=== PATIENT | male | born 1940 | race Caucasian/White ===

== ENCOUNTER → 2017-01-20 | Outpatient (CLI) | payer MEDICARE ==
[~2017-01-20] VITALS: Ht 177.8 cm; Wt 94.3 kg
[~2017-01-20] MED LIST: /PRAV20TA PO; /TAMS4CA PO; A REDS PO; ASPI81TA85 PO; AUGM875T27 PO; CALCCHW19 PO; CALCIUM OR; CEPH500C PO; CLOT1CRE EX; LEVO500T PO; LIDO2JELLY EXT; LIDOCAINE 2% INJ 100 MG/5 ML SDV (FOR ANES.) As Ordered ONE; LIDOCAINE JELLY TOP; METO100T PO; METOPROLOL XL OR; METOPROLOL XL PO; NATU400T OR; NS 1,000 ML IV SCH; OXYC-208 OR; OXYCO5TA PO; PRAD150C PO; PRAV20TA2 PO; PRAV40TA2 PO; PRIL20CA PO; PRIL20CA9 PO; PROPOFOL 200 MG/20 ML VIAL As Ordered ONE; TYLE325T5 PO; VITA-112 PO; VITA-130 OR; VITA400C2 PO; VITA500C24 PO; VITA8000 PO; VITAMIN D OR; XARE15TA PO; XARE20TA PO; ZINC50TA PO; ZINC50TA22 OR; [UNRECOGNIZED DRUG - OTHER] OR; [UNRECOGNIZED DRUG - OTHER] OR; copper OR; toprol OR
--- NOTE | 2017-01-20 14:46 | ROOR ---
Patient Name: Otto Moralez Procedure Date: 01/20/2017 2:27 PM Date of : 1940 Age: 76 Room: [facility] Gender: Male Note Status: Finalized Procedure: Colonoscopy to Cecum thru Ostomy + Biopsy Polypectomy Indications: High risk colon cancer surveillance: Personal history of colon cancer, Last colonoscopy: 2012 Providers: Hai Vanegas MD Referring MD: EVENS KIRAN JR, MD Requesting Provider: Medicines: Monitored Anesthesia Care Complications: No immediate complications. Procedure: Pre-Anesthesia Assessment: - The heart rate, respiratory rate, oxygen saturations, blood pressure, adequacy of pulmonary ventilation, and response to care were monitored throughout the procedure. The Colonoscope was introduced through the sigmoid colostomy and advanced to the cecum, identified by appendiceal orifice and ileocecal valve. The colonoscopy was performed without difficulty. The patient tolerated the procedure well. The quality of the bowel preparation was good. Findings: Multiple small and large-mouthed diverticula were found in the sigmoid colon. Two sessile polyps were found in the mid ascending colon. The polyps were small in size. These polyps were removed with a cold biopsy forceps. Resection and retrieval were complete. The exam was otherwise without abnormality. Impression: - Diverticulosis in the sigmoid colon. - Two small polyps in the mid ascending colon, removed with a cold biopsy forceps. Resected and retrieved. - The examination was otherwise normal. - The exam was otherwise normal to the cecum. Recommendation: - Discharge patient to home. - High fiber diet. - Continue present medications. - Await pathology results. - Telephone GI clinic for pathology results in 1 week. - Repeat colonoscopy in 2 years for surveillance based on pathology results. - Return to referring physician. - The findings and recommendations were discussed with the patient's family. Hai Vanegas MD Hai Vanegas MD 01/20/2017 2:45:33 PM This report has been signed electronically. Number of Addenda: 0 Note Initiated On: 01/20/2017 2:27 PM Estimated Blood Loss: Estimated blood loss: none.
[2017-01-20 15:10] VITALS: BP 164/89
== END | disposition home or self-care (01) ==
LOC: M OPP 13:28
PROVIDERS: ATTEND Internal Medicine Gastroenterology
DX: Z12.11 Encounter for screening for malignant neoplasm of colon (principal); D12.2 Benign neoplasm of ascending colon; K57.30 Diverticulosis of large intestine without perforation or abscess without bleeding; Z85.038 Personal history of other malignant neoplasm of large intestine; Z08 Encounter for follow-up examination after completed treatment for malignant neoplasm; I48.91 Unspecified atrial fibrillation; I10 Essential (primary) hypertension; E78.5 Hyperlipidemia, unspecified; Z95.828 Presence of other vascular implants and grafts; M19.90 Unspecified osteoarthritis, unspecified site; M54.9 Dorsalgia, unspecified; G47.30 Sleep apnea, unspecified; Z85.528 Personal history of other malignant neoplasm of kidney; Z93.3 Colostomy status; R12 Heartburn; Z87.891 Personal history of nicotine dependence; F17.221 Nicotine dependence, chewing tobacco, in remission; Z92.21 Personal history of antineoplastic chemotherapy; Z79.01 Long term (current) use of anticoagulants; Z79.899 Other long term (current) drug therapy

== ENCOUNTER → 2017-02-06 | Outpatient (CLI) | payer MEDICARE ==
[~2017-02-06] MED LIST changes: -LIDOCAINE 2% INJ 100 MG/5 ML SDV (FOR ANES.) As Ordered ONE; -NS 1,000 ML IV SCH; -PROPOFOL 200 MG/20 ML VIAL As Ordered ONE
--- NOTE | 2017-02-06 13:11 | REP ---
CT of the chest without IV contrast: Comparisons are 08/07/2016 and 04/16/2016. The the patient has multiple lung nodules as follows: Page 51, lingula, pericardial, 12 mm (and 9 mm on both prior studies). Page 54, left lower lobe, 8 mm (8 mm and 03/22/2016, 7 mm 04/16/2016). Page 58, left lower lobe, 3 mm (3 mm, 08/07/2016, 2 mm 04/16/2016). No new lung nodules are identified. Occasional small calcific pleural plaques are again noted, unchanged. There are no acute infiltrates or effusions. There is no mediastinal or axillary lymphadenopathy. In the absence of IV contrast the study is insensitive for hilar lymphadenopathy. The unenhanced thoracic aorta is unremarkable. Cardiac size is normal. Coronary artery vascular atheroma is again noted. Upper abdomen: There is no adrenal mass. The visualized portions of the unenhanced liver, pancreas and spleen are unremarkable. There are surgical clips in the gallbladder fossa. Impression: There are three left lung nodules. The 12 mm nodule has increased size from both prior studies. The other two nodules demonstrate no significant size increase. Occasional small calcific pleural plaques are again noted. Signed by Enoch Boland MD 02/06/2017 01:03 P
== END ==
LOC: M RAD 11:04
PROVIDERS: ATTEND Internal Medicine
DX: C20 Malignant neoplasm of rectum (principal); R91.8 Other nonspecific abnormal finding of lung field

== ENCOUNTER → 2017-08-19 | Outpatient (CLI) | payer MEDICARE ==
[~2017-08-19] MED LIST changes: +GASTROGRAFIN SOLUTION 30ML (Q9963) As Ordered ONE; +ISOVUE-370 76% 100ML VIAL (Q9967) As Ordered ONE; -METO100T PO; +METO100T5 PO
--- NOTE | 2017-08-19 15:24 | REP ---
CT CHEST WITHOUT IV CONTRAST: CT chest is performed without IV contrast with sagittal and coronal reconstruction images. Comparison 02/06/2017. The previously noted left upper lobe nodule medially along the left heart border demonstrates irregular margins and measures 14 cm in diameter, mildly increased in size since prior study. The other nodule in the left lower lobe just inferior to that has also increased in size measuring 1.6 cm in diameter. There are tiny air lucencies within the nodule suggesting possible necrosis. The 2 to 3 mm nodular opacity just inferior to that in the left lower lobe is stable and of doubtful significance. No new nodules are seen. There are scattered calcified pleural plaques bilaterally. Mild interstitial fibrotic changes are seen bilaterally. Heart is normal in size. There is no pleural or pericardial effusion. No significant adenopathy is seen in the mediastinal or hilar regions, nor in the axillary regions. There are mild atherosclerotic calcifications of the thoracic aorta without aneurysm. There are degenerative changes of the spine. There are compression deformities of a few lower thoracic vertebral bodies which are stable. IMPRESSION: Two dominant nodules in the left lung, one in the left upper lobe and the other in the left lower lobe, demonstrating irregular borders and increase in size when compared to the prior study of 02/06/2017. No other new findings. Signed by Enoch Pak MD 08/19/2017 08:01 P
--- NOTE | 2017-08-19 15:43 | REP ---
CT ABDOMEN AND PELVIS WITH ORAL CONTRAST, WITHOUT IV CONTRAST: CT abdomen and pelvis is performed without IV contrast. Oral contrast was administered. Sagittal and coronal reconstruction images are performed. Comparison is made with prior CT abdomen and pelvis 09/16/2014. The liver is grossly unremarkable. The patient has had a prior cholecystectomy. I do not see significant biliary dilatation. The spleen, adrenals and pancreas are grossly unremarkable. The patient has had a prior right nephrectomy. Left kidney demonstrates a cyst in the upper pole without evidence of hydronephrosis or nephrolithiasis. Moderate atherosclerotic calcifications are seen of the abdominal aorta without aneurysm. IVC filter is present. No adenopathy is seen. No free air or free fluid is seen. A colostomy is seen in the left lower quadrant with diffuse colonic diverticulosis. The appendix appears normal. Remnant of the bladder inferiorly in the pelvis appears unchanged. No new pelvic mass is seen. There are degenerative changes of the spine. IMPRESSION: Postsurgical changes as discussed in detail above. Colonic diverticulosis. No acute abnormalities. No free air or free fluid. No adenopathy or evidence of mass. Left renal cyst. Signed by Enoch Pak MD 08/19/2017 08:02 P
== END ==
LOC: M RAD 09:08
PROVIDERS: ATTEND Internal Medicine
DX: C20 Malignant neoplasm of rectum (principal); I70.0 Atherosclerosis of aorta; R91.8 Other nonspecific abnormal finding of lung field
CPT/HCPCS: 71250; 74176; Q9963

== ENCOUNTER 2018-04-17 05:33 | Inpatient (IN) | payer MEDICARE ==
[2018-04-17] MEDS ORDERED: LIDOCAINE 1% MDV 20ML VIAL SQ (05:45)
[2018-04-17] MEDS: LR 1,000 ML IV ×2 (06:28→17:09)
[2018-04-17] MEDS ORDERED: fentaNYL 100 MCG/2 ML INJECTION (J3010) As Ordered (07:10)
[2018-04-17] MEDS ORDERED: PROPOFOL 200 MG/20 ML VIAL As Ordered (07:10)
[2018-04-17] MEDS ORDERED: METOCLOPRAMIDE INJ 10MG/2ML VIAL (J2765) As Ordered (07:10)
[2018-04-17] MEDS ORDERED: ROCURONIUM BROMIDE 50 MG/5 ML VIAL As Ordered ×2 (07:10→09:18)
[2018-04-17] MEDS ORDERED: LIDOCAINE 2% INJ 100 MG/5 ML SDV (FOR ANES.) As Ordered (07:10)
[2018-04-17] MEDS ORDERED: ONDANSETRON 4MG/2ML VIAL (J2405) As Ordered (07:10)
[2018-04-17] MEDS: LIDOCAINE 1% SDV INJ 30 ML VIAL As Ordered (08:13)
[2018-04-17] MEDS: BUPIVACAINE HCL 0.25% 30 ML VIAL As Ordered (08:13)
[2018-04-17] MEDS ORDERED: fentaNYL 250 MCG/5 ML INJECTION (J3010) As Ordered (08:16)
[2018-04-17] MEDS: ZOSYN 3.375 GM VIAL (J2543) As Ordered (10:30)
[2018-04-17] MEDS: BACITRACIN PWD 50,000 UNITS VIAL As Ordered (10:58)
[2018-04-17] MEDS ORDERED: LABETALOL HCL 100 MG/20 ML VIAL As Ordered (12:40)
[2018-04-17] MEDS ORDERED: ePHEDrine SULFATE 25 MG/5 ML(5MG/ML) SYRINGE As Ordered (12:40)
[2018-04-17] MEDS ORDERED: HYDROmorphone HCL 2 MG/ML 1ML VIAL (J1170) As Ordered (14:38)
[2018-04-17] MEDS ORDERED: ONDANSETRON 4MG/2ML VIAL (J2405) IV ×2 (15:15→16:00)
[2018-04-17] MEDS ORDERED: MORPHINE 4 MG/ML 1ML VIAL/SYRINGE (J2270) IV (15:15)
[2018-04-17] MEDS ORDERED: GLYCOPYRROLATE INJ 0.2 MG/ML 2 ML VIAL As Ordered (15:17)
[2018-04-17] MEDS ORDERED: NEOSTIGMINE 10 MG/10 ML VIAL (J2710) As Ordered (15:17)
[2018-04-17] MEDS ORDERED: HYDROMORPHONE HCL 0.5 MG/ 0.5 ML SYRINGE (J1170 PER 1) IV (16:00)
[2018-04-17] MEDS ORDERED: PERCOCET 5MG/325MG TAB PO (16:00)
[2018-04-17] MEDS ORDERED: fentaNYL 100 MCG/2 ML INJECTION (J3010) IV (16:00)
[2018-04-17] MEDS: NORCO, ANEXSIA 5/325MG TABLET (HYDROcodone/ACETAMINOPHEN) PO (17:06)
[2018-04-17] MEDS: OMEPRAZOLE 20 MG CAP PO (17:34)
[2018-04-17] MEDS: PRAVASTATIN 20 MG TAB PO (17:34)
[2018-04-17] MEDS: VITAMIN D 1,000 INTERNATIONAL UNITS TABLET PO (17:34)
[2018-04-17] MEDS: KETOROLAC 30 MG/ML VIAL (J1885) IV (22:17)
[2018-04-17] MEDS: ALVIMOPAN 12 MG CAPSULE (ENTEREG) PO (23:06)
[2018-04-17] MEDS: SENOKOT S TAB PO (23:06)
[2018-04-18 06:14] LABS: BASO % 0.2 % (0.0-1.0); HEMATOCRIT 40.7 % (42.0-52.0); IMMATURE GRANULOCYTE % 0.3 % (0-3.0); LYMPH # 0.6 10^3/uL (1.5-4.5); LYMPH % 5.1 % (24.0-44.0); MEAN CORPUSCULAR HEMOGLOBIN 32.4 pg (27.0-33.0); MEAN CORPUSCULAR HGB CONC 34.4 g/dl (32.0-36.5); MEAN CORPUSCULAR VOLUME 94.2 fl (80.0-96.0); MONO # 0.9 10^3/uL (0.0-0.8); MONO % 7.5 % (0.0-5.0); NEUTROPHILS # 10.5 10^3/uL (1.8-7.7); NEUTROPHILS % 86.9 % (36.0-66.0); PLATELET COUNT, AUTOMATED 166 10^3/uL (150-450); RED BLOOD COUNT 4.32 10^6/uL (4.30-6.10); RED CELL DISTRIBUTION WIDTH 13.5 % (11.5-14.5); WHITE BLOOD COUNT 12.1 10^3/uL (4.0-10.0)
[2018-04-18 06:30] LABS: ANION GAP 5 MEQ/L (8-16); BLOOD UREA NITROGEN 21 MG/DL (7-18); CALCIUM LEVEL 8.6 MG/DL (8.8-10.2); CARBON DIOXIDE LEVEL 26 MEQ/L (21-32); CHLORIDE LEVEL 108 MEQ/L (98-107); CREATININE FOR GFR 1.62 MG/DL (0.70-1.30); GLOMERULAR FILTRATION RATE 44.2 (>42); GLUCOSE, FASTING 137 MG/DL (70-100); POTASSIUM SERUM 4.3 MEQ/L (3.5-5.1); SODIUM LEVEL 139 MEQ/L (136-145)
[2018-04-18] MEDS: KETOROLAC 30 MG/ML VIAL (J1885) IV ×2 (10:25→17:02)
[2018-04-18] MEDS: ENOXAPARIN 40 MG/0.4 ML SYRINGE (J1650) SC (10:25)
[2018-04-18] MEDS: ACETAMINOPHEN TAB 650MG DOSE (2X325MG) PO (10:25)
[2018-04-18] MEDS: METOPROLOL SUCC (TopROL XL) 100MG *XL* TAB PO (10:26)
[2018-04-18] MEDS: SENOKOT S TAB PO ×2 (10:26→20:23)
[2018-04-18] MEDS: VITAMIN D 1,000 INTERNATIONAL UNITS TABLET PO (10:26)
[2018-04-18] MEDS: OMEPRAZOLE 20 MG CAP PO (10:26)
[2018-04-18] MEDS: PRAVASTATIN 20 MG TAB PO (10:26)
[2018-04-18] MEDS: ALVIMOPAN 12 MG CAPSULE (ENTEREG) PO ×2 (11:52→20:23)
[2018-04-19 06:26] LABS: BASO % 0.2 % (0.0-1.0); EOS % 0.1 % (0.0-3.0); HEMATOCRIT 41.9 % (42.0-52.0); HEMOGLOBIN 14.5 g/dl (13.5-17.5); IMMATURE GRANULOCYTE % 0.5 % (0-3.0); LYMPH # 0.8 10^3/uL (1.5-4.5); LYMPH % 5.7 % (24.0-44.0); MEAN CORPUSCULAR HEMOGLOBIN 32.2 pg (27.0-33.0); MEAN CORPUSCULAR HGB CONC 34.6 g/dl (32.0-36.5); MEAN CORPUSCULAR VOLUME 93.1 fl (80.0-96.0); MONO # 0.9 10^3/uL (0.0-0.8); MONO % 6.5 % (0.0-5.0); NEUTROPHILS # 11.5 10^3/uL (1.8-7.7); PLATELET COUNT, AUTOMATED 162 10^3/uL (150-450); RED CELL DISTRIBUTION WIDTH 13.6 % (11.5-14.5); WHITE BLOOD COUNT 13.2 10^3/uL (4.0-10.0)
[2018-04-19 06:53] LABS: ANION GAP 8 MEQ/L (8-16); BLOOD UREA NITROGEN 18 MG/DL (7-18); CALCIUM LEVEL 9.1 MG/DL (8.8-10.2); CARBON DIOXIDE LEVEL 24 MEQ/L (21-32); CHLORIDE LEVEL 109 MEQ/L (98-107); CREATININE FOR GFR 1.36 MG/DL (0.70-1.30); GLOMERULAR FILTRATION RATE 54.1 (>42); GLUCOSE, FASTING 114 MG/DL (70-100); POTASSIUM SERUM 4.2 MEQ/L (3.5-5.1); SODIUM LEVEL 141 MEQ/L (136-145)
[2018-04-19] MEDS: VITAMIN D 1,000 INTERNATIONAL UNITS TABLET PO (10:09)
[2018-04-19] MEDS: SENOKOT S TAB PO ×2 (10:09→21:42)
[2018-04-19] MEDS: OMEPRAZOLE 20 MG CAP PO (10:09)
[2018-04-19] MEDS: ENOXAPARIN 40 MG/0.4 ML SYRINGE (J1650) SC (10:09)
[2018-04-19] MEDS: PRAVASTATIN 20 MG TAB PO (10:09)
[2018-04-19] MEDS: ALVIMOPAN 12 MG CAPSULE (ENTEREG) PO ×2 (10:09→21:42)
[2018-04-19] MEDS: METOPROLOL SUCC (TopROL XL) 100MG *XL* TAB PO (10:10)
[2018-04-19] MEDS: KETOROLAC 30 MG/ML VIAL (J1885) IV (10:54)
[2018-04-20 06:54] LABS: BASO % 0.3 % (0.0-1.0); EOS # 0.2 10^3/uL (0.0-0.50); EOS % 1.7 % (0.0-3.0); HEMATOCRIT 40.7 % (42.0-52.0); HEMOGLOBIN 13.6 g/dl (13.5-17.5); IMMATURE GRANULOCYTE % 0.4 % (0-3.0); LYMPH # 0.9 10^3/uL (1.5-4.5); LYMPH % 8.1 % (24.0-44.0); MEAN CORPUSCULAR HEMOGLOBIN 31.6 pg (27.0-33.0); MEAN CORPUSCULAR HGB CONC 33.4 g/dl (32.0-36.5); MEAN CORPUSCULAR VOLUME 94.7 fl (80.0-96.0); MONO # 0.8 10^3/uL (0.0-0.8); MONO % 7.3 % (0.0-5.0); NEUTROPHILS # 8.6 10^3/uL (1.8-7.7); NEUTROPHILS % 82.2 % (36.0-66.0); PLATELET COUNT, AUTOMATED 161 10^3/uL (150-450); WHITE BLOOD COUNT 10.5 10^3/uL (4.0-10.0)
[2018-04-20 07:28] LABS: ANION GAP 7 MEQ/L (8-16); BLOOD UREA NITROGEN 20 MG/DL (7-18); CALCIUM LEVEL 9.3 MG/DL (8.8-10.2); CARBON DIOXIDE LEVEL 26 MEQ/L (21-32); CHLORIDE LEVEL 108 MEQ/L (98-107); CREATININE FOR GFR 1.24 MG/DL (0.70-1.30); GLOMERULAR FILTRATION RATE > 60.0 (>42); GLUCOSE, FASTING 97 MG/DL (70-100); POTASSIUM SERUM 3.8 MEQ/L (3.5-5.1); SODIUM LEVEL 141 MEQ/L (136-145)
[2018-04-20] MEDS: SENOKOT S TAB PO ×3 (09:00→20:28)
[2018-04-20] MEDS: OMEPRAZOLE 20 MG CAP PO (10:51)
[2018-04-20] MEDS: METOPROLOL SUCC (TopROL XL) 100MG *XL* TAB PO (10:51)
[2018-04-20] MEDS: PRAVASTATIN 20 MG TAB PO (10:51)
[2018-04-20] MEDS: VITAMIN D 1,000 INTERNATIONAL UNITS TABLET PO (10:52)
[2018-04-20] MEDS: ENOXAPARIN 40 MG/0.4 ML SYRINGE (J1650) SC (10:52)
[2018-04-20] MEDS ORDERED: ADENOSINE 6MG/2ML INJECTION (J0153) As Ordered ×2 (12:44→12:48)
[2018-04-20] MEDS: ADENOSINE 6MG/2ML INJECTION (J0153) IV (12:50)
[2018-04-20 14:45] LABS: CK-MB VALUE MASS < 1.0 NG/ML (<3.6); CPK CREATINE PHOSPHOKINASE 85 U/L (39-308); MB/CK RELATIVE INDEX 1.17 (< OR =4)
[2018-04-20 16:30] LABS: MAGNESIUM LEVEL 2.3 MG/DL (1.8-2.4); PHOSPHORUS LEVEL 1.7 MG/DL (2.5-4.9); THYROID STIMULATING HORMONE 0.538 uIU/ML (0.358-3.740)
[2018-04-20] MEDS: RIVAROXABAN 20 MG TAB (XARELTO) PO (17:19)
[2018-04-20] MEDS: AMIODARONE HCL 150 MG in APPROPRIATE DILUENT 1 EA IV (23:40)
[2018-04-21 05:35] LABS: TROPONIN I 0.03 NG/ML (< 0.10)
[2018-04-21] MEDS: AMIODARONE 200 MG TAB (PACERONE) PO (08:09)
[2018-04-21] MEDS: VITAMIN D 1,000 INTERNATIONAL UNITS TABLET PO (08:09)
[2018-04-21] MEDS: PRAVASTATIN 20 MG TAB PO (08:09)
[2018-04-21] MEDS: OMEPRAZOLE 20 MG CAP PO (08:10)
[2018-04-21] MEDS: METOPROLOL SUCC (TopROL XL) 100MG *XL* TAB PO (08:10)
[2018-04-21] MEDS: SENOKOT S TAB PO (08:10)
[2018-04-21] MEDS: AMIODARONE HCL 150 MG in APPROPRIATE DILUENT 1 EA IV ×2 (08:11→11:30)
[2018-04-21] MEDS: NORCO, ANEXSIA 5/325MG TABLET (HYDROcodone/ACETAMINOPHEN) PO (13:22)
== END 2018-04-21 17:15 | disposition home health service (06) | DRG 354 ==
LOC: M SDC 05:33 → M MSPAV 16:24 → M ICU 04-20 12:41 → M SDC 15:06 → M MSPAV 15:07
PROC: 0WQF4ZZ Repair Abdominal Wall, Percutaneous Endoscopic Approach (ICD-10-PCS; principal; 2018-04-17 07:30)
PROC: 0WUF4JZ Supplement Abdominal Wall with Synthetic Substitute, Percutaneous Endoscopic Approach (ICD-10-PCS; 2018-04-17 07:30)
PROC: 0JQ83ZZ Repair Abdomen Subcutaneous Tissue and Fascia, Percutaneous Approach (ICD-10-PCS; 2018-04-17 07:30)
PROC: 8E0W4CZ Robotic Assisted Procedure of Trunk Region, Percutaneous Endoscopic Approach (ICD-10-PCS; 2018-04-17 07:30)
DX: K43.5 Parastomal hernia without obstruction or gangrene (principal); I47.1 Supraventricular tachycardia; K94.09 Other complications of colostomy; I48.91 Unspecified atrial fibrillation; Z79.01 Long term (current) use of anticoagulants; I10 Essential (primary) hypertension; Z85.048 Personal history of other malignant neoplasm of rectum, rectosigmoid junction, and anus; Z79.899 Other long term (current) drug therapy; E78.5 Hyperlipidemia, unspecified; K21.9 Gastro-esophageal reflux disease without esophagitis; J44.9 Chronic obstructive pulmonary disease, unspecified; G47.33 Obstructive sleep apnea (adult) (pediatric)

== ENCOUNTER 2018-05-06 16:21 | Emergency (ER) | payer MEDICARE ==
[2018-05-06 17:17] LABS: HEMATOCRIT 42.3 % (42.0-52.0); HEMOGLOBIN 14.4 g/dl (13.5-17.5); MEAN CORPUSCULAR HEMOGLOBIN 32.6 pg (27.0-33.0); MEAN CORPUSCULAR VOLUME 95.7 fl (80.0-96.0); PLATELET COUNT, AUTOMATED 475 10^3/uL (150-450); RED BLOOD COUNT 4.42 10^6/uL (4.30-6.10); RED CELL DISTRIBUTION WIDTH 13.7 % (11.5-14.5); WHITE BLOOD COUNT 20.8 10^3/uL (4.0-10.0)
[2018-05-06] MEDS: AMIODARONE 200 MG TAB (PACERONE) PO (17:25)
[2018-05-06] MEDS: METOPROLOL TART 50 MG TAB PO (17:25)
[2018-05-06 17:35] LABS: ANION GAP 11 MEQ/L (8-16); BLOOD UREA NITROGEN 25 MG/DL (7-18); CALCIUM LEVEL 8.8 MG/DL (8.8-10.2); CARBON DIOXIDE LEVEL 26 MEQ/L (21-32); CHLORIDE LEVEL 102 MEQ/L (98-107); CREATININE FOR GFR 1.48 MG/DL (0.70-1.30); GLOMERULAR FILTRATION RATE 49.1 (>42); GLUCOSE, FASTING 118 MG/DL (70-100); POTASSIUM SERUM 4.4 MEQ/L (3.5-5.1); SODIUM LEVEL 139 MEQ/L (136-145)
[2018-05-06] MEDS: METOPROLOL TART 25 MG TABLET PO (19:19)
[2018-05-06 19:34] LABS: CK-MB VALUE MASS 1.3 NG/ML (<3.6); CPK CREATINE PHOSPHOKINASE 32 U/L (39-308); MB/CK RELATIVE INDEX 4.06 (< OR =4); TROPONIN I < 0.02 NG/ML (< 0.10)
== END 2018-05-06 21:39 | disposition home or self-care (01) ==
LOC: M ED 16:21
DX: I48.91 Unspecified atrial fibrillation (principal); I10 Essential (primary) hypertension; Z85.048 Personal history of other malignant neoplasm of rectum, rectosigmoid junction, and anus; Z79.899 Other long term (current) drug therapy; Z79.01 Long term (current) use of anticoagulants
CPT/HCPCS: 99285

== ENCOUNTER 2018-05-08 22:00 | Inpatient (IN) | payer MEDICARE ==
[2018-05-09] MEDS: NS 500 ML IV (00:58)
[2018-05-09 01:03] LABS: BASO % 0.2 % (0.0-1.0); EOS # 0.1 10^3/uL (0.0-0.50); EOS % 0.4 % (0.0-3.0); HEMATOCRIT 38.3 % (42.0-52.0); HEMOGLOBIN 12.8 g/dl (13.5-17.5); IMMATURE GRANULOCYTE % 1.6 % (0-3.0); LYMPH # 1.4 10^3/uL (1.5-4.5); LYMPH % 6.8 % (24.0-44.0); MEAN CORPUSCULAR HEMOGLOBIN 31.7 pg (27.0-33.0); MEAN CORPUSCULAR HGB CONC 33.4 g/dl (32.0-36.5); MEAN CORPUSCULAR VOLUME 94.8 fl (80.0-96.0); MONO # 1.3 10^3/uL (0.0-0.8); MONO % 6.7 % (0.0-5.0); NEUTROPHILS % 84.3 % (36.0-66.0); PLATELET COUNT, AUTOMATED 429 10^3/uL (150-450); RED BLOOD COUNT 4.04 10^6/uL (4.30-6.10); RED CELL DISTRIBUTION WIDTH 13.5 % (11.5-14.5); WHITE BLOOD COUNT 20.1 10^3/uL (4.0-10.0)
[2018-05-09 01:27] LABS: ALBUMIN 2.2 GM/DL (3.2-5.2); ALBUMIN/GLOBULIN RATIO 0.52 (1.00-1.93); ALKALINE PHOSPHATASE 267 U/L (45-117); ALT/SGPT 52 U/L (12-78); ANION GAP 10 MEQ/L (8-16); AST/SGOT 37 U/L (7-37); BILIRUBIN,DIRECT 0.3 MG/DL (0.0-0.2); BILIRUBIN,TOTAL 0.5 MG/DL (0.2-1.0); BLOOD UREA NITROGEN 26 MG/DL (7-18); CALCIUM LEVEL 8.6 MG/DL (8.8-10.2); CARBON DIOXIDE LEVEL 26 MEQ/L (21-32); CHLORIDE LEVEL 102 MEQ/L (98-107); CREATININE FOR GFR 1.47 MG/DL (0.70-1.30); GLOMERULAR FILTRATION RATE 49.5 (>42); GLUCOSE, FASTING 112 MG/DL (70-100); LIPASE 197 U/L (73-393); POTASSIUM SERUM 3.7 MEQ/L (3.5-5.1); SODIUM LEVEL 138 MEQ/L (136-145); TOTAL PROTEIN 6.4 GM/DL (6.4-8.2)
[2018-05-09] MEDS ORDERED: BISACODYL 5 MG TAB PO (01:45)
[2018-05-09] MEDS ORDERED: ACETAMINOPHEN TAB 650MG DOSE (2X325MG) PO (01:45)
[2018-05-09] MEDS ORDERED: NORCO, ANEXSIA 5/325MG TABLET (HYDROcodone/ACETAMINOPHEN) PO (01:45)
[2018-05-09] MEDS ORDERED: ONDANSETRON 4 MG TAB (S0181) PO (01:45)
[2018-05-09 01:48] LABS: INR 2.09; PROTHROMBIN TIME 23.9 SECONDS (12.1-14.4)
[2018-05-09 02:05] LABS: LACTIC ACID SEPSIS PROTOCOL 2.5 MMOL/L (0.4-2.0)
[2018-05-09 05:28] LABS: BASO % 0.3 % (0.0-1.0); EOS # 0.1 10^3/uL (0.0-0.50); EOS % 0.7 % (0.0-3.0); HEMATOCRIT 35.3 % (42.0-52.0); IMMATURE GRANULOCYTE % 1.3 % (0-3.0); LYMPH # 1.1 10^3/uL (1.5-4.5); LYMPH % 6.9 % (24.0-44.0); MEAN CORPUSCULAR HEMOGLOBIN 31.6 pg (27.0-33.0); MEAN CORPUSCULAR VOLUME 92.9 fl (80.0-96.0); MONO % 6.4 % (0.0-5.0); NEUTROPHILS # 13.4 10^3/uL (1.8-7.7); NEUTROPHILS % 84.4 % (36.0-66.0); PLATELET COUNT, AUTOMATED 369 10^3/uL (150-450); RED CELL DISTRIBUTION WIDTH 13.5 % (11.5-14.5); WHITE BLOOD COUNT 15.9 10^3/uL (4.0-10.0)
[2018-05-09 05:40] LABS: ANION GAP 8 MEQ/L (8-16); BLOOD UREA NITROGEN 23 MG/DL (7-18); CALCIUM LEVEL 8.1 MG/DL (8.8-10.2); CARBON DIOXIDE LEVEL 25 MEQ/L (21-32); CHLORIDE LEVEL 106 MEQ/L (98-107); CREATININE FOR GFR 1.23 MG/DL (0.70-1.30); GLOMERULAR FILTRATION RATE > 60.0 (>42); GLUCOSE, FASTING 109 MG/DL (70-100); POTASSIUM SERUM 3.6 MEQ/L (3.5-5.1); SODIUM LEVEL 139 MEQ/L (136-145)
[2018-05-09] MEDS ORDERED: CALCIUM/VITAMIN D 500 MG TAB PO (09:00)
[2018-05-09] MEDS: AMIODARONE 200 MG TAB (PACERONE) PO ×2 (09:44→21:42)
[2018-05-09] MEDS: VITAMIN D 1,000 INTERNATIONAL UNITS TABLET PO (09:44)
[2018-05-09] MEDS: OMEPRAZOLE 20 MG CAP PO (09:44)
[2018-05-09] MEDS: PRAVASTATIN 20 MG TAB PO (09:44)
[2018-05-09] MEDS: METOPROLOL TART 25 MG TABLET PO ×2 (09:44→21:42)
[2018-05-09] MEDS: METAMUCIL (PSYLLIUM) PACKET PO (10:58)
[2018-05-09] MEDS: CALCIUM/VITAMIN D 500 MG TAB PO (10:58)
[2018-05-09 18:21] LABS: HEMATOCRIT 39.2 % (42.0-52.0); HEMOGLOBIN 13.3 g/dl (13.5-17.5); MEAN CORPUSCULAR HGB CONC 33.9 g/dl (32.0-36.5); MEAN CORPUSCULAR VOLUME 94.2 fl (80.0-96.0); PLATELET COUNT, AUTOMATED 462 10^3/uL (150-450); RED BLOOD COUNT 4.16 10^6/uL (4.30-6.10); RED CELL DISTRIBUTION WIDTH 13.7 % (11.5-14.5); WHITE BLOOD COUNT 14.3 10^3/uL (4.0-10.0)
[2018-05-10 06:10] LABS: BASO % 0.3 % (0.0-1.0); EOS # 0.2 10^3/uL (0.0-0.50); EOS % 1.6 % (0.0-3.0); HEMATOCRIT 37.9 % (42.0-52.0); HEMOGLOBIN 12.5 g/dl (13.5-17.5); IMMATURE GRANULOCYTE % 1.8 % (0-3.0); LYMPH # 1.2 10^3/uL (1.5-4.5); LYMPH % 8.7 % (24.0-44.0); MEAN CORPUSCULAR HEMOGLOBIN 31.5 pg (27.0-33.0); MEAN CORPUSCULAR VOLUME 95.5 fl (80.0-96.0); MONO # 0.8 10^3/uL (0.0-0.8); MONO % 6.3 % (0.0-5.0); NEUTROPHILS # 10.8 10^3/uL (1.8-7.7); NEUTROPHILS % 81.3 % (36.0-66.0); PLATELET COUNT, AUTOMATED 391 10^3/uL (150-450); RED BLOOD COUNT 3.97 10^6/uL (4.30-6.10); RED CELL DISTRIBUTION WIDTH 13.6 % (11.5-14.5); WHITE BLOOD COUNT 13.3 10^3/uL (4.0-10.0)
[2018-05-10 06:27] LABS: ANION GAP 6 MEQ/L (8-16); BLOOD UREA NITROGEN 21 MG/DL (7-18); CALCIUM LEVEL 8.3 MG/DL (8.8-10.2); CARBON DIOXIDE LEVEL 27 MEQ/L (21-32); CHLORIDE LEVEL 107 MEQ/L (98-107); CREATININE FOR GFR 1.21 MG/DL (0.70-1.30); GLOMERULAR FILTRATION RATE > 60.0 (>42); GLUCOSE, FASTING 90 MG/DL (70-100); POTASSIUM SERUM 3.6 MEQ/L (3.5-5.1); SODIUM LEVEL 140 MEQ/L (136-145)
[2018-05-10] MEDS: METAMUCIL (PSYLLIUM) PACKET PO (10:21)
[2018-05-10] MEDS: METOPROLOL TART 25 MG TABLET PO (10:22)
[2018-05-10] MEDS: OMEPRAZOLE 20 MG CAP PO (10:22)
[2018-05-10] MEDS: PRAVASTATIN 20 MG TAB PO (10:22)
[2018-05-10] MEDS: VITAMIN D 1,000 INTERNATIONAL UNITS TABLET PO (10:22)
[2018-05-10] MEDS: AMIODARONE 200 MG TAB (PACERONE) PO (10:23)
[2018-05-10] MEDS: CALCIUM/VITAMIN D 500 MG TAB PO (10:23)
== END 2018-05-10 13:40 | disposition home health service (06) | DRG 394 ==
LOC: M ED 22:00 → M ED INP 05-09 01:40 → M MSPAV 05-09 03:11
DX: K94.01 Colostomy hemorrhage (principal); K92.2 Gastrointestinal hemorrhage, unspecified; I48.0 Paroxysmal atrial fibrillation; I12.9 Hypertensive chronic kidney disease with stage 1 through stage 4 chronic kidney disease, or unspecified chronic kidney disease; E78.5 Hyperlipidemia, unspecified; G47.33 Obstructive sleep apnea (adult) (pediatric); Z85.038 Personal history of other malignant neoplasm of large intestine; Z85.048 Personal history of other malignant neoplasm of rectum, rectosigmoid junction, and anus; N18.9 Chronic kidney disease, unspecified; Z86.718 Personal history of other venous thrombosis and embolism; N28.1 Cyst of kidney, acquired; K57.30 Diverticulosis of large intestine without perforation or abscess without bleeding

== ENCOUNTER → 2018-08-17 | Outpatient (CLI) | payer MEDICARE ==
[~2018-08-17] MED LIST changes: -/PRAV20TA PO; -/TAMS4CA PO; -A REDS PO; -ASPI81TA85 PO; -AUGM875T27 PO; -CALCCHW19 PO; -CALCIUM OR; -CEPH500C PO; -CLOT1CRE EX; +GASTROGRAFIN SOLUTION 30ML (Q9963) As Ordered; -GASTROGRAFIN SOLUTION 30ML (Q9963) As Ordered ONE; +ISOVUE-370 76% 100ML VIAL (Q9967) As Ordered; -ISOVUE-370 76% 100ML VIAL (Q9967) As Ordered ONE; -LEVO500T PO; -LIDO2JELLY EXT; -LIDOCAINE JELLY TOP; -METO100T5 PO; -METOPROLOL XL OR; -METOPROLOL XL PO; -NATU400T OR; -OXYC-208 OR; -OXYCO5TA PO; -PRAD150C PO; -PRAV20TA2 PO; -PRAV40TA2 PO; -PRIL20CA PO; -PRIL20CA9 PO; -TYLE325T5 PO; -VITA-112 PO; -VITA-130 OR; -VITA400C2 PO; -VITA500C24 PO; -VITA8000 PO; -VITAMIN D OR; -XARE15TA PO; -XARE20TA PO; -ZINC50TA PO; -ZINC50TA22 OR; -[UNRECOGNIZED DRUG - OTHER] OR; -[UNRECOGNIZED DRUG - OTHER] OR; -copper OR; -toprol OR
== END ==
LOC: M RAD 11:17
DX: C20 Malignant neoplasm of rectum (principal)
CPT/HCPCS: Q9963

== ENCOUNTER → 2019-05-21 | Outpatient (CLI) | payer MEDICARE ==
[~2019-05-21] MED LIST changes: +A REDS PO; +AMIO200T PO; +AREDS 2 PO; +ASPI81TA85 PO; +AUGM875T27 PO; +CALC-333 PO; +CALCCHW19 PO; +CALCIUM OR; +CALCTAB41 PO; +CEPH500C PO; +CLOT1CRE EX; +FLOM0.4C39 PO; -GASTROGRAFIN SOLUTION 30ML (Q9963) As Ordered; +GASTROGRAFIN SOLUTION 30ML (Q9963) As Ordered ONE; -ISOVUE-370 76% 100ML VIAL (Q9967) As Ordered; +KONS100P6 PO; +LEVO500T PO; +LIDO2GEL26 EXT; +LIDOCAINE JELLY TOP; +METO100T5 PO; +METO1TAB33 PO; +METO25TA4 PO; +METO37.5 PO; +METOPROLOL XL OR; +METOPROLOL XL PO; +NATU400T OR; +NORC1TAB7 PO; +OXYC-208 OR; +OXYC-517 PO; +PACE200T PO; +PRAD150C PO; +PRAV1TAB39 PO; +PRAV20TA2 PO; +PRAV40TA2 PO; +PRIL20CA PO; +PRIL20CA9 PO; +TYLE325T5 PO; +VITA-112 PO; +VITA-130 OR; +VITA400C2 PO; +VITA500C24 PO; +VITA8000 PO; +VITAMIN D OR; +XARE15TA PO; +XARE20TA PO; +ZINC50TA PO; +ZINC50TA22 OR; +[UNRECOGNIZED DRUG - OTHER] OR; +[UNRECOGNIZED DRUG - OTHER] OR; +copper OR; +toprol OR
--- NOTE | 2019-05-21 14:51 | REP ---
CT of the chest without IV contrast: Comparison is 08/17/2018. The known lung nodule anteriorly in the left upper lobe today measures 15 mm. This measured 2.0 cm 08/17/2018. The the known left lower lobe lung nodule today measures 2.1 cm and again demonstrates nodular stranding toward the peripheral pleural pleural and toward the left hilus. Previously this nodule measured 2.1 cm and also demonstrated nodular stranding toward the pleura and toward the left hilus. There are no new nodules. There are no infiltrates. There are no pleural effusions. There is a mediastinal node anterior to the left pulmonary artery measuring 14 x 9 mm. This previously measured 15 x 10 mm. There is no other mediastinal lymph node enlargement. There is no axillary lymph node enlargement. The study is insensitive for hilar lymph node enlargement in the absence of IV contrast. The unenhanced thoracic aorta is unremarkable. Cardiac size is normal. There is no pericardial effusion. There is calcified vascular atheroma in the coronary arteries. This is unchanged. Upper abdomen: There is a cholecystectomy. There is no adrenal mass. The visualized areas of the unenhanced hepatic parenchyma, pancreas and spleen are unremarkable. The renal cortical cyst in the left renal upper pole. This is unchanged. Impression: No significant interval change in the known to left lung nodules and in the mediastinal lymph node. There are no new nodules. No new lymph nodes. There are no infiltrates or pleural effusions. Electronically Signed by Enoch Boland MD 05/21/2019 02:42 P
--- NOTE | 2019-05-21 15:04 | REP ---
CT of the abdomen and pelvis with bowel contrast, without IV contrast: The patient has a history of rectal carcinoma. Comparison is 08/17/2018. There has been resection of the rectosigmoid colon and there is a left lower quadrant colostomy. This is unchanged. Please see a CT of the chest performed this same date for evaluation of the lower lung matamoros. The unenhanced hepatic parenchyma, pancreas, spleen, adrenals and right kidney are unremarkable except for a right renal cortical cysts. This is unchanged. There is a right nephrectomy. This is unchanged. There is a vena cava filter. This is unchanged. There is no periaortic/retroperitoneal adenopathy or mass. There is no bowel distension. The mesentery is unremarkable. There are numerous diverticula in the in the ascending colon, transverse colon and descending colon without CT evidence of acute diverticulitis. This is unchanged. Pelvis: There is no adenopathy or ascites. There is a Murphy catheter in the bladder. The prostate is enlarged. The bladder is incompletely distended. The pelvic bowel loops are unremarkable. There are no lytic, blastic or destructive skeletal changes. There is demineralization with multilevel endplate compression deformities at T11, T12, L1, L3 and L4, unchanged. 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 Impression: No evidence of metastatic disease, adenopathy or ascites. Sigmoid and rectosigmoid resection and left lower quadrant colostomy, unchanged. Diverticulosis without diverticulitis, unchanged. Vena cava Matt filter, unchanged. Right nephrectomy, unchanged. Mineralization and vertebral body compression deformities as described, unchanged. No skeletal metastases are identified. Electronically Signed by Enoch Boland MD 05/21/2019 02:55 P
== END ==
LOC: M RAD 10:58
PROVIDERS: ATTEND Internal Medicine
DX: C20 Malignant neoplasm of rectum (principal); R91.8 Other nonspecific abnormal finding of lung field; R59.0 Localized enlarged lymph nodes
CPT/HCPCS: 71250; 74176; Q9963